=== PATIENT | male | born 1980 | race Asian ===

== ENCOUNTER → 2017-07-11 | Outpatient (CLI) | payer OTHER ==
[2017-07-11 16:43] LABS: BASO % 0.3 %; BASO ABS # 0.02 K/uL (0-0.2); HEMATOCRIT 38.5 % (42-52); HEMOGLOBIN 12.7 g/dL (14.0-18.0); IG# 0.03 K/uL (0.00-0.02); LYMPH % 25.6 %; LYMPH ABS # 1.82 K/uL (1.2-3.4); MEAN CELL VOLUME 95.5 fL (80-100); MEAN CORPUSCULAR HEMOGLOBIN 31.5 pg (25-34); MONO % 5.1 %; MONO ABS # 0.36 K/uL (0.11-0.59); NEUT % 68.6 %; NEUT ABS # 4.89 K/uL (1.4-6.5); PLATELET COUNT 242 K/uL (130-400); RED CELL DISTRIBUTION WIDTH SD 44.8 fL (36.4-46.3); WHITE BLOOD COUNT 7.12 K/uL (4.8-10.8)
[2017-07-11 17:13] LABS: ALBUMIN 4.3 gm/dl (3.4-5.0); ALT/SGPT 29 U/L (12-78); BLOOD UREA NITROGEN 10 mg/dl (7-18); CALCIUM 8.8 mg/dl (8.5-10.1); CARBON DIOXIDE 26 mmol/L (21-32); GLUCOSE 93 mg/dl (70-99); POTASSIUM 3.7 mmol/L (3.5-5.1); SODIUM 138 mmol/L (136-145)
[2017-07-11 17:24] LABS: ALKALINE PHOSPHATASE 55 U/L (45-117); AST/SGOT 10 U/L (15-37); TOTAL PROTEIN 7.5 gm/dl (6.4-8.2)
== END | disposition home or self-care (01) ==
LOC: C.LAB1850 15:54
PROVIDERS: ATTEND Registered Nurse
DX: R63.4 Abnormal weight loss (principal)

== ENCOUNTER → 2017-07-18 | Day surgery (SDC) | payer OTHER ==
[~2017-07-18] VITALS: Ht 162.6 cm; Wt 50.0 kg
[~2017-07-18] MED LIST: LIDOCAINE HCL 2% 2 ML VIAL (20MG/ML) ONE; PRLSR20 PO; PROPOFOL IV EMULSION 10 MG/ML 20 ML VIAL IV ONE; SODIUM CHLORIDE 0.9% 500ML 500 ML IV ONE
[2017-07-18 12:23] VITALS: Ht 162.6 cm; Wt 50.0 kg
--- NOTE | 2017-07-18 12:24 | Endo History and Physical ---
History & Physical Date of Service: Jul 18, 2017. Chief Complaint: Family history of colon cancer and weight loss Referring Physician: JESSICA Banda History of Present Illness 37 yo male who presents for EGD and colonoscopy secondary to family history of colon cancer and weight loss. Allergies Coded Allergies: No Known Allergies (Verified , 07/18/17) Physical Exam General Appearance: WD/WN, no apparent distress Respiratory/Chest: Auscultation: breath sounds normal Cardiovascular: Heart Auscultation: RRR Abdomen: Bowel Sounds: normal Inspection & Palpation: soft, non-distended, no tenderness, guarding & rebound Assessment and Plan Assessment: 37 yo male who presents for EGD and colonoscopy secondary to family history of colon cancer and weight loss. Plan: Proceed with EGD and colonoscopy.
--- NOTE | 2017-07-18 13:42 | Anesthesiology Progress Note ---
Anesthesia Post Op Note Date & Time Jul 18, 2017 at 13:42 Vital Signs Pain Intensity: 0 Vital Signs Past 12 Hours Date Time Temp Pulse Resp B/P (MAP) Pulse Ox O2 Delivery O2 Flow Rate FiO2 07/18/17 12:38 36.7 98 16 124/87 (99) 99 Room Air Notes Mental Status: alert / awake / arousable, participated in evaluation Pt Amnestic to Procedure: Yes Nausea / Vomiting: adequately controlled Pain: adequately controlled Airway Patency, RR, SpO2: stable & adequate BP & HR: stable & adequate Hydration State: stable & adequate Anesthetic Complications: no major complications apparent The patient is doing well. He is awake and his vitals are stable.
--- NOTE | 2017-07-18 13:43 | Discharge Instructions ---
Endoscopy Patient Instructions Date / Procedure(s) Performed Jul 18, 2017. Colonoscopy, EGD Allergy Information Coded Allergies: No Known Allergies (Verified , 07/18/17) Discharge Date / Findings Jul 18, 2017. EGD: Gastritis s/p biopsies Colonoscopy: Internal hemorrhoids Medication Instructions OK to resume all medications today as prescribed Reported Home Medications Medications Dose Route/Sig Max Daily Dose Days Date Category Prilosec (Omeprazole) 20 Mg Capcr 20 Mg PO DAILYBB 07/18/17 Reported Provider Instructions Activity Restrictions - No exercising or heavy lifting for 24 hours. - Do not drink alcohol the day of the procedure. - Do not drive a car or operate machinery until the day after the procedure. - Do not make any important decisions or sign important papers in 24 hours after the procedure. Following Day: - Return to full activity which may include returning to work/school. Diet Start your diet with liquids and light foods (jello, soup, juice, toast). Then eat your usual diet if not nauseated. Treatment For Common After Affects For mild abdominal pain, bloating, or excessive gas: - Rest - Eat lightly - Lie on right side Follow-Up Information Follow-up with Melissa Becker as scheduled Anesthesia Information What You Should Know You have had a procedure that required some medicine to reduce anxiety and discomfort. This treatment is called moderate sedation. After receiving the treatment, you may be sleepy, but you will be able to breathe on your own. The effects of the treatment may last for several hours. Follow these instructions along with Activity/Diet recommendations noted above: * Do NOT do anything where dizziness or clumsiness would be dangerous. * Rest quietly at home today, then you can be up and about tomorrow. * Have a responsible person stay with you the rest of today. * You may have had an I.V. today. If so, you may take the dressing off later today. Recommendations Call your doctor if: * Trouble breathing * Continuous vomiting for more than 24 hours * Temperature above 101 degrees * Severe abdominal pain or bloating * Pain not relieved by pain medicine ordered * There is increased drainage or redness from any incision * A large amount of rectal bleeding greater than 2-3 tablespoons. (If you had a polyp/s removed or have hemorrhoids, a small amount of blood - from the rectum is to be expected.) * You have any unanswered questions or concerns. IN THE EVENT OF A SERIOUS EMERGENCY, GO TO THE NEAREST EMERGENCY ROOM Your discharge instructions were prepared by provider Panfilo Cabrales. Patient Instructions Signature Page [employer] Patient (or Guardian) Signature/Date: I have read and understand the instructions given to me by my caregivers. Caregiver/RN/Doctor Signature/Date: The above-named patient and/or guardian has received patient instructions on this date. + Original Patient Signature Page (only) stays with chart. Please make copy for patient.
--- NOTE | 2017-07-18 13:51 | GI REPORT ---
Procedure Date: 07/18/2017 12:57 PM Procedure: Upper GI endoscopy Indications: Weight loss Medicines: Monitored Anesthesia Care Complications: No immediate complications. Estimated Blood Loss: Estimated blood loss: none. Procedure: Pre-Anesthesia Assessment: - Prior to the procedure, a History and Physical was performed, and patient medications and allergies were reviewed. The patient's tolerance of previous anesthesia was also reviewed. The risks and benefits of the procedure and the sedation options and risks were discussed with the patient. All questions were answered, and informed consent was obtained. Prior Anticoagulants: The patient has taken no previous anticoagulant or antiplatelet agents. ASA Grade Assessment: II - A patient with mild systemic disease. After reviewing the risks and benefits, the patient was deemed in satisfactory condition to undergo the procedure. After obtaining informed consent, the endoscope was passed under direct vision. Throughout the procedure, the patient's blood pressure, pulse, and oxygen saturations were monitored continuously. The scope was introduced through the mouth, and advanced to the second part of duodenum. The upper GI endoscopy was accomplished without difficulty. The patient tolerated the procedure well. Findings: The esophagus was normal. Localized mild inflammation characterized by erythema was found in the gastric antrum. Biopsies were taken with a cold forceps for histology. The examined duodenum was normal. Impression: - Normal esophagus. - Gastritis. Biopsied. - Normal examined duodenum. Recommendation: - Resume previous diet. - Continue present medications. - Await pathology results. - Return to primary care physician as previously scheduled. Panfilo Cabrales, DO 07/18/2017 1:50:48 PM This report has been signed electronically. Note Initiated On: 07/18/2017 12:57 PM I attest to the content of the Intraoperative Record and orders documented therein, exceptions below
--- NOTE | 2017-07-18 13:54 | GI REPORT ---
Procedure Date: 07/18/2017 1:08 PM Procedure: Colonoscopy Indications: Family history of colon cancer in a first-degree relative Medicines: Monitored Anesthesia Care Complications: No immediate complications. Estimated Blood Loss: Estimated blood loss: none. Procedure: Pre-Anesthesia Assessment: - Prior to the procedure, a History and Physical was performed, and patient medications and allergies were reviewed. The patient's tolerance of previous anesthesia was also reviewed. The risks and benefits of the procedure and the sedation options and risks were discussed with the patient. All questions were answered, and informed consent was obtained. Prior Anticoagulants: The patient has taken no previous anticoagulant or antiplatelet agents. ASA Grade Assessment: II - A patient with mild systemic disease. After reviewing the risks and benefits, the patient was deemed in satisfactory condition to undergo the procedure. After I obtained informed consent, the scope was passed under direct vision. Throughout the procedure, the patient's blood pressure, pulse, and oxygen saturations were monitored continuously. The scope was introduced through the anus and advanced to the terminal ileum. The colonoscopy was performed without difficulty. The patient tolerated the procedure well. The quality of the bowel preparation was good. The terminal ileum, ileocecal valve, appendiceal orifice, and rectum were photographed. Findings: The perianal and digital rectal examinations were normal. Non-bleeding internal hemorrhoids were found during retroflexion. The hemorrhoids were small. The exam was otherwise without abnormality. Impression: - Non-bleeding internal hemorrhoids. - The examination was otherwise normal. - No specimens collected. Recommendation: - Resume previous diet. - Continue present medications. - Repeat colonoscopy in 5 years for surveillance. - Return to primary care physician as previously scheduled. Panfilo Cabrales, 07/18/2017 1:53:46 PM This report has been signed electronically. Note Initiated On: 07/18/2017 1:08 PM I attest to the content of the Intraoperative Record and orders documented therein, exceptions below
[2017-07-18 14:05] VITALS: BP 113/80; PULSE 63; O2SAT 99
== END | disposition home or self-care (01) ==
LOC: C.GI 12:03
PROVIDERS: ATTEND Internal Medicine
DX: Z12.11 Encounter for screening for malignant neoplasm of colon (principal); R63.4 Abnormal weight loss; K64.8 Other hemorrhoids; K29.50 Unspecified chronic gastritis without bleeding; Z80.0 Family history of malignant neoplasm of digestive organs; Z90.89 Acquired absence of other organs

== ENCOUNTER → 2017-08-11 | Outpatient (CLI) | payer OTHER ==
[~2017-08-11] MED LIST changes: -LIDOCAINE HCL 2% 2 ML VIAL (20MG/ML) ONE; -PROPOFOL IV EMULSION 10 MG/ML 20 ML VIAL IV ONE; -SODIUM CHLORIDE 0.9% 500ML 500 ML IV ONE
[2017-08-11 12:18] LABS: BASO % 0.3 %; BASO ABS # 0.02 K/uL (0-0.2); EOS % 0.9 %; EOS ABS # 0.05 K/uL (0-0.5); HEMATOCRIT 43.8 % (42-52); HEMOGLOBIN 14.2 g/dL (14.0-18.0); IG# 0.01 K/uL (0.00-0.02); LYMPH % 32.2 %; LYMPH ABS # 1.86 K/uL (1.2-3.4); MEAN CELL VOLUME 94.4 fL (80-100); MEAN CORPUSCULAR HEMOGLOBIN 30.6 pg (25-34); MEAN CORPUSCULAR HGB CONC 32.4 g/dl (32-36); MONO % 6.1 %; MONO ABS # 0.35 K/uL (0.11-0.59); NEUT % 60.3 %; NEUT ABS # 3.48 K/uL (1.4-6.5); PLATELET COUNT 192 K/uL (130-400); RED CELL DISTRIBUTION WIDTH CV 12.5 % (11.5-14.5); RED CELL DISTRIBUTION WIDTH SD 42.9 fL (36.4-46.3); WHITE BLOOD COUNT 5.77 K/uL (4.8-10.8)
== END | disposition home or self-care (01) ==
LOC: C.LAB 10:30
PROVIDERS: ATTEND Registered Nurse
DX: D64.9 Anemia, unspecified (principal)

== ENCOUNTER → 2017-08-13 | Outpatient (CLI) | payer OTHER | END | disposition home or self-care (01) | LOC: C.LAB 09:52 | PROVIDERS: ATTEND Registered Nurse | DX: D64.9 Anemia, unspecified (principal) ==